=== PATIENT | female | born 1990 | race American Indian/Alaskan Native ===

== ENCOUNTER 2019-07-28 08:49 | Outpatient (CLI) | payer BC ==
--- NOTE | 2019-07-28 10:41 | Ultrasound Report ---
BILATERAL DIGITAL DIAGNOSTIC MAMMOGRAM WITH CAD -- 07/28/2019 BILATERAL COMPLETE BREAST ULTRASOUND INDICATION: 28-year-old with bilateral axillary lumps. TECHNIQUE: Digital bilateral mammographic imaging was performed. Complete ultrasound of all four (4) quadrants was performed. This examination was interpreted with the benefit of Computer-Aided Detecti on (CAD) analysis. COMPARISON: None. These are baseline studies. FINDINGS: Breast Density: The breasts are heterogeneously dense, which may obscure small masses. MAMMOGRAPHIC FINDINGS: There is no evidence of dominant mass, suspicious calcifications or architectu ral distortion in either breast. Prominent bilateral axillary fat pads. ULTRASOUND FINDINGS: Complete sonographic evaluation of all 4 quadrants and retroareolar region was p erformed. Ultrasound also evaluated bilateral axilla. No mass, cyst or suspicious shadowing. Bilate ral benign axillary fat. A single left axillary lymph node with central fat and benign morphology claudia sures 1.4 cm. No lymphadenopathy. IMPRESSION: Negative mammogram and negative bilateral breast ultrasound. Bilateral benign axillary fa t pads correspond to palpable lumps. Follow up recommendation: Unless otherwise clinically indicated, recommend patient return to routine screening mammography at age 40. BI-RADS Category 2: Benign. A "normal" or negative report should not discourage follow up or biopsy of a clinically significant f inding. A written summary of these findings will be mailed to the patient. The patient will be entered into a mammography reporting system which will generate a reminder letter for the patient's next appointmen t at the appropriate interval. According to the [employer], yearly mammograms are recommended starting at age 40 and continuing as long as a woman is in good health. Breast MRI is recommended for women with an berry roximately 20-25% or greater lifetime risk of breast cancer, including women with a strong family his tory of breast or ovarian cancer and women who have been treated for Hodgkin's disease. Signer Name: Everardo Justin MD Signed: 07/28/2019 10:37 AM Workstation Name: [id number]
== END 2019-07-28 08:50 | disposition home or self-care (01) ==
LOC: SPVWC 08:49
PROVIDERS: ATTEND Obstetrics & Gynecology
DX: R92.8 Other abnormal and inconclusive findings on diagnostic imaging of breast (principal)
CPT/HCPCS: 77066

== ENCOUNTER 2020-01-11 09:52 | Emergency (ER) | payer BC ==
[2020-01-11 09:58] VITALS: BP 133/77
[2020-01-11] MEDS ORDERED: ACETAMINOPHEN W/CODEINE 300-30 MG TAB PO ONE (10:56)
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
== END 2020-01-11 12:48 | disposition home or self-care (01) ==
LOC: ED 09:52
DX: S60.414A Abrasion of right ring finger, initial encounter (principal); S10.91XA Abrasion of unspecified part of neck, initial encounter; R51 Headache; Z88.6 Allergy status to analgesic agent; V89.2XXA Person injured in unspecified motor-vehicle accident, traffic, initial encounter; Y93.89 Activity, other specified; Y92.488 Other paved roadways as the place of occurrence of the external cause; Y99.8 Other external cause status
CPT/HCPCS: 70450